=== PATIENT | female | born 1995 | race Two or more races ===

== ENCOUNTER 2018-11-29 18:20 | Emergency (ER) | payer MEDICAID ==
[~2018-11-29] VITALS: Ht 160 cm; Wt 59.9 kg
--- NOTE | 2018-11-29 18:58 | NUR ---
MD AT BEDSIDE FOR HX AND PHYSICAL
--- NOTE | 2018-11-29 19:09 | NUR ---
Patient discharged to home in stable conditon. Written and verbal after care instructions given. Patient verbalizes understanding of instructions. AMBULATORY W/ STABLE GAIT ALL BELONGINGS W/ PT
[2018-11-29 19:25] VITALS: BP 118/78
== END 2018-11-29 19:20 | disposition home or self-care (01) ==
LOC: ER 18:23
DX: S30.0XXA Contusion of lower back and pelvis, initial encounter (principal); S00.03XA Contusion of scalp, initial encounter; W10.8XXA Fall (on) (from) other stairs and steps, initial encounter; Y93.89 Activity, other specified; Y92.89 Other specified places as the place of occurrence of the external cause; Y99.8 Other external cause status
CPT/HCPCS: A4663